=== PATIENT | female | born 1975 | race Caucasian/White ===

== ENCOUNTER 2018-11-28 20:37 | Emergency (ER) | payer MEDICAID ==
[~2018-11-28] VITALS: Ht 165.1 cm; Wt 88.5 kg
[2018-11-28 20:40] VITALS: BP_SYST 109
== END 2018-11-28 21:50 | disposition left against medical advice (07) ==
LOC: SED 20:37
DX: R06.02 Shortness of breath (principal); R05 Cough; R53.1 Weakness; Z53.21 Procedure and treatment not carried out due to patient leaving prior to being seen by health care provider